=== PATIENT | female | born 1970 | race African-American/Black ===

== ENCOUNTER 2019-05-22 12:22 | Emergency (ER) | payer BC ==
[2019-05-22] MEDS ORDERED: ONDANSETRON HCL 4 MG/2 ML VIAL ONE (12:48)
[2019-05-22 13:05] LABS: BASOPHILS % (AUTO) 0.5 % (0.0-5.0); EOSINOPHILS % (AUTO) 2.6 % (0.0-8.0); HEMATOCRIT 37.2 % (36-48); LYMPHOCYTES % (AUTO) 12.3 % (21.0-51.0); MEAN CORPUSCULAR HEMOGLOBIN 24.6 pg (27.0-33.0); MEAN CORPUSCULAR HGB CONC 31.8 g/dL (32.0-36.0); MEAN CORPUSCULAR VOLUME 77.3 fL (79-99); NEUTROPHILS % (AUTO) 79.6 % (40.0-77.0); PLATELET COUNT (AUTO) 336 K/uL (130-400); RED BLOOD CELL COUNT(AUTO) 4.81 MIL/uL (4.00-5.50); RED CELL DISTRIBUTION WIDTH 17.3 % (11.0-15.5); WHITE BLOOD COUNT (AUTO) 9.9 K/uL (4.8-10.8)
[2019-05-22 13:09] LABS: APPEARANCE,URINE Clear (CLEAR); BILIRUBIN,URINE Negative (NEGATIVE); COLOR,URINE Yellow (YELLOW); GLUCOSE, URINE (UA) Negative (NEGATIVE); KETONES,URINE 15 mg/dL (NEGATIVE); LEUKOCYTE ESTERASE ,URINE Negative (NEGATIVE); NITRATE,URINE Negative (NEGATIVE); OCCULT BLOOD,URINE Small (NEGATIVE); PH,URINE 5.5 (5.0-8.0); PROTEIN,URINE Negative (NEGATIVE)
[2019-05-22 13:15] LABS: CREATININE 0.9 mg/dL (0.5-1.5); POTASSIUM 4.5 mmol/L (3.5-5.1)
[2019-05-22 13:16] LABS: INR 0.95 (0.85-1.15)
[2019-05-22 13:20] LABS: ALBUMIN 3.4 g/dL (3.5-5.0); BILIRUBIN,TOTAL 0.3 mg/dL (0.2-1.0); TOTAL PROTEIN, SERUM 7.5 g/dL (6.0-8.3)
[2019-05-22 13:23] LABS: HCG,QUAL RESULT NEGATIVE (NEGATIVE)
[2019-05-22 13:24] LABS: BACTERIA,URINE Few /HPF (None Seen); RBC,URINE 0-1 /HPF (0-1); WBC,URINE 0-1 /HPF (0-1)
[2019-05-22] MEDS ORDERED: KETOROLAC TROMETHAMINE 15MG/ML ONE (13:57)
[2019-05-22] MEDS ORDERED: SODIUM CHLORIDE 0.9% 1000ML 1,000 ML IV ONE (13:58)
[2019-05-22] MEDS ORDERED: TRAMADOL HCL 50 MG TABLET ONE (15:37)
== END 2019-05-22 16:00 | disposition home or self-care (01) ==
LOC: EDH 12:22
DX: K85.90 Acute pancreatitis without necrosis or infection, unspecified (principal); E86.0 Dehydration; R03.0 Elevated blood-pressure reading, without diagnosis of hypertension; E07.9 Disorder of thyroid, unspecified; Z98.84 Bariatric surgery status; Z72.0 Tobacco use
CPT/HCPCS: 36415; 74176; 80053; 81001; 81025; 82150; 82550; 83690; 84484; 85025; 85610; 85730; 93005; 96361; 96374; 96375; 99285; J1885; J2405; J7030